=== PATIENT | male | born 1945 | race Caucasian/White ===

== ENCOUNTER → 2018-03-11 | Outpatient (CLI) | payer MEDICARE, BC ==
[~2018-03-11] MED LIST: AMOX-559 PO; ASPI-757 PO; ASPI81TA15 PO; ATOR20TA65 PO; CLIN30SO TOP; CLINDAMYACIN PO; CYCL5.5D OU; DOXY20PT PO; DUTA0.5C4 PO; FLUT16SP19; GEMF600T89 PO; HYDR1TAB PO; HYDR25 PO; NIAC250C17 PO; NIAC500C17 PO; TAMS0.4C70 PO; TRET20CR37 TP
== END ==
LOC: LAB 15:14
PROVIDERS: ATTEND Internal Medicine
DX: J02.8 Acute pharyngitis due to other specified organisms (principal)
CPT/HCPCS: 87070

== ENCOUNTER → 2018-03-11 | Outpatient (CLI) | payer MEDICARE, BC ==
[2018-03-11 15:51] LABS: PLATELET COUNT, AUTOMATED 231 K/uL (150-450)
== END ==
LOC: LAB 15:07
PROVIDERS: ATTEND Internal Medicine
DX: J02.9 Acute pharyngitis, unspecified (principal)
CPT/HCPCS: 36415; 82040; 82247; 82310; 82374; 82435; 82565; 82947; 84075; 84132; 84155; 84295; 84450; 84460; 84520; 85025; 85651; 86140

== ENCOUNTER → 2018-03-20 | Outpatient (CLI) | payer MEDICARE, BC | LOC: LAB 13:41 | PROVIDERS: ATTEND Nurse Practitioner | DX: L57.0 Actinic keratosis (principal) | CPT/HCPCS: 88305 ==

== ENCOUNTER → 2018-05-28 | Outpatient (CLI) | payer MEDICARE, BC | LOC: RESP 01:07 | PROVIDERS: ATTEND Internal Medicine | DX: G47.33 Obstructive sleep apnea (adult) (pediatric) (principal) ==

== ENCOUNTER → 2018-06-28 | Outpatient (CLI) | payer MEDICARE, BC | LOC: RESP 20:53 | PROVIDERS: ATTEND Internal Medicine | DX: Z02.9 Encounter for administrative examinations, unspecified (principal) ==